=== PATIENT | male | born 1985 | race Caucasian/White ===

== ENCOUNTER 2023-01-27 21:10 | Emergency (ER) | payer OTHER ==
[2023-01-27 21:41] VITALS: BP 152/91; PULSE 107; RESP 16; TEMP 98.8
[2023-01-27] MEDS ORDERED: DIPH,PERTUS(ACELL)TETVAC-LF 0.5 ML VIAL IM ONE (22:03)
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
== END 2023-01-27 22:13 | disposition home or self-care (01) ==
LOC: EC 21:10
DX: S01.111A Laceration without foreign body of right eyelid and periocular area, initial encounter (principal); Z88.0 Allergy status to penicillin; Y04.0XXA Assault by unarmed brawl or fight, initial encounter
CPT/HCPCS: 99283

== ENCOUNTER 2024-07-22 20:07 | Emergency (ER) | payer OTHER ==
[2024-07-22 20:13] VITALS: RESP 18
--- NOTE | 2024-07-22 21:19 | XR ---
PROCEDURE: XR femur RT - 3V DATE AND TIME: 07/22/2024 9:00 PM CLINICAL INDICATION: PHH; Injury TECHNIQUE: Department protocol COMPARISON: None FINDINGS / IMPRESSION: No acute soft tissue findings. No acute fracture/malalignment. No focal osseous lesions. [facility], , 07/22/2024 9:17 PM
--- NOTE | 2024-07-22 21:44 | ED ---
Lower Extremity Injury HPI - General Chief Complaint: Extremity Injury, Lower Stated Complaint: R thigh injury Time Seen by Provider: 07/22/24 20:38 Source: patient, RN notes reviewed Mode of arrival: ambulatory Limitations: no limitations - History of Present Illness Initial Comments: This is a 39-year-old male who presents to the emergency department for a right thigh injury. Patient was running at work and caught his toe on something. In the process feels like he tore something in his right thigh. Pain is in the center anterior aspect of the thigh. States that he has torn something in this region before and feels like he did it again. He is still able to ambulate. - Related Data Home Medications Medication Instructions Recorded Confirmed No Known Home Medications 01/27/23 01/27/23 Allergies Allergy/AdvReac Type Severity Reaction Status Date / Time amoxicillin Allergy Unknown Verified 07/22/24 20:13 Childhood Review of Systems ROS Statement: Those systems with pertinent positive or pertinent negative responses have been documented in the HPI. ROS Other: All systems not noted in ROS Statement are negative. Past Medical History Past Medical History: No Reported History History of Any Multi-Drug Resistant Organisms: None Reported Past Surgical History: No Surgical Hx Reported Past Psychological History: No Psychological Hx Reported Smoking Status: Never smoker Past Alcohol Use History: Occasional Past Drug Use History: None Reported General Exam Limitations: no limitations General appearance: alert, in no apparent distress Head exam: Present: atraumatic, normocephalic, normal inspection Respiratory exam: Present: normal lung sounds bilaterally. Absent: respiratory distress, wheezes, rales, rhonchi, stridor Cardiovascular Exam: Present: regular rate, normal rhythm, normal heart sounds. Absent: systolic murmur, diastolic murmur, rubs, gallop, clicks Extremities exam: Present: other (Tenderness to palpation over the anterior aspect of the right thigh. Full range of motion. 2+ DP and PT pulses.) Neurological exam: Present: alert, oriented X3, CN II-XII intact Psychiatric exam: Present: normal affect, normal mood Skin exam: Present: warm, dry, intact, normal color. Absent: rash Course Vital Signs 07/22/24 07/22/24 20:11 22:15 Temperature 99.4 F 97.9 F Pulse Rate 111 H 88 Respiratory 18 18 Rate Blood Pressure 148/105 140/95 O2 Sat by Pulse 96 96 Oximetry Medical Decision Making - Medical Decision Making This is a 39 year old male who presents to the emergency department for right thigh pain. Was pt. sent in by a medical professional or institution? @ -No Did you speak to anyone other than the patient for history? @ -No Did you review nursing and triage notes? @ -Yes, and I agree, it is accurate with regards to the patient's symptoms. Were old charts reviewed? @ -No Differential Diagnosis? @ -Differential Musculoskeletal: Muscular strain, contusion, ligament sprain, fracture, arthritis, septic arthritis, bursitis, cellulitis, muscle spasm, nerve compression, DVT, arterial occlusion, herpes zoster, electrolyte abnormality, tumor.... This is not meant to be in all inclusive list EKG interpreted by me (3pts min.)? @ -Not obtained X-rays interpreted by me (1pt min.)? @ -X-ray of the right femur obtained. My interpretation identifies no acute fractures. CT interpreted by me (1pt min.)? @ -Not obtained U/S interpreted by me (1pt. min.)? @ -Not obtained What testing was considered but not performed? (CT, X-rays, U/S, labs)? Why? @ -None What meds were considered but not given? Why? @ -None Did you discuss the management of the patient with other professionals? @ -No Did you reconcile home meds? @ -No Was smoking cessation discussed for >3mins.? @ -No Was critical care preformed (if so, how long)? @ -No Were there social determinants of health that impacted care today? How? (Home lessness, low income, unemployed, alcoholism, drug addiction, transportation, low edu. Level, literacy, decrease access to med. care, half-way, rehab)? @ -No Was there de-escalation of care discussed even if they declined? (Discuss DNR or withdrawal of care, Hospice)? @ -No What co-morbidities impacted this encounter? (DM, HTN, Smoking, COPD, CAD, Ca ncer, CVA, Hep., AIDS, mental health diagnosis, sleep apnea, morbid obesity)? @ -None Was patient admitted / discharged? @ -Discharged. X-ray of the right femur obtained revealing no acute process. Patient declined the need for any pain medication to the emergency department. He was given a knee immobilizer and crutches to be used as needed. Advised alternating with ibuprofen and Tylenol as needed for discomfort. Information for orthopedic follow-up provided. Patient discharged home in stable condition. Case discussed with ED attending Dr. [place]. Return precautions reviewed in depth, the patient is instructed to return to the emergency department with any new, worsening, or concerning symptoms. Patient verbalized understanding. Undiagnosed new problem with uncertain prognosis? @ -None Drug Therapy requiring intensive monitoring for toxicity (Heparin, Nitro, Insulin, Cardizem)? @ -None Were any procedures done? @ -None Diagnosis/symptom? @ -Right quadriceps injury Acute, or Chronic, or Acute on Chronic? @ -Acute Uncomplicated (without systemic symptoms) or Complicated (systemic symptoms)? @ -Uncomplicated Side effects of treatment? @ -None Exacerbation, Progression, or Severe Exacerbation] @ -Not applicable Poses a threat to life or bodily function? @ -May limit ability to ambulate. - Radiology Data Radiology results: report reviewed, image reviewed Disposition Clinical Impression: Injury of right quadriceps femoris muscle Disposition: HOME SELF-CARE Instructions (If sedation given, give patient instructions): Muscle Strain (ED) Additional Instructions: Return to the emergency department with any new, worsening, or concerning symptoms. Alternate with ibuprofen and Tylenol as needed for pain relief. Use the crutches and knee immobilizer as needed. [facility] Is patient prescribed a controlled substance at d/c from ED?: No Referrals: None,Stated [Primary Care Provider] - 1-2 days Time of Disposition: 21:46
[2024-07-22 22:18] VITALS: BP 140/95; PULSE 88; TEMP 97.9
== END 2024-07-22 22:18 | disposition home or self-care (01) ==
LOC: EC 20:07
CPT/HCPCS: 99283